=== PATIENT | male | born 1960 | race Caucasian/White ===

== ENCOUNTER 2021-09-04 05:16 | Day surgery (SDC) | payer OTHER ==
[~2021-09-04] VITALS: Ht 185.4 cm; Wt 109.0 kg
[~2021-09-04 05:16] MED LIST: SODIUM CHLORIDE 0.9% 1,000 ML IV ONE
[2021-09-04] MEDS ORDERED: LIDOCAINE 4% 50 ML SOLUTION TP ONE (05:17)
[2021-09-04] MEDS ORDERED: BENZOCAINE 20% 50 MCG/SPRAY 57 GM TP ONE (05:17)
[2021-09-04] MEDS ORDERED: ALBUTEROL SULFATE 2.5 MG/0.5 ML NEB SOLUTION NEB ONE (05:17)
[2021-09-04] MEDS ORDERED: LIDOCAINE 2% 5 ML JELLY TP ONE (05:17)
[2021-09-04] MEDS ORDERED: SODIUM CHLORIDE 0.9% 1,000 ML ONE (06:34)
[2021-09-04 07:08] LABS: COVID AG,FIA SOURCE NASOPHARYNGEAL
[2021-09-04] MEDS ORDERED: FentaNYL CITRATE PF 100 MCG/2 ML VIAL ONE (07:46)
[2021-09-04] MEDS ORDERED: MIDAZOLAM HCL 5 MG/ML VIAL ONE (07:47)
[2021-09-04 07:51] LABS: GLUCOMETER DEV NAME(LOC) SDS.; GLUCOSE,POINT OF CARE 90 MG/DL (70-110)
[2021-09-04] MEDS ORDERED: SODIUM CHLORIDE 0.9% 10 ML ONE (07:51)
[2021-09-04] MEDS ORDERED: GABA-1181 PO (07:54)
[2021-09-04] MEDS ORDERED: BACL10TA PO (07:55)
[2021-09-04] MEDS ORDERED: PRED1 PO (07:56)
[2021-09-04] MEDS ORDERED: RIVA20TA PO (07:58)
[2021-09-04] MEDS ORDERED: DIGO125T84 PO (07:59)
[2021-09-04] MEDS ORDERED: SIMV-261 PO (08:00)
[2021-09-04] MEDS ORDERED: METO50 PO (08:00)
[2021-09-04] MEDS ORDERED: ALLO-45 PO (08:02)
[2021-09-04] MEDS ORDERED: FURO80 PO (08:04)
[2021-09-04] MEDS ORDERED: POTA8TAB71 PO (08:05)
[2021-09-04] MEDS ORDERED: TAMS-13 PO (08:06)
[2021-09-04] MEDS ORDERED: LEVO100 PO (08:06)
[2021-09-04] MEDS ORDERED: MELO-107 PO (08:07)
[2021-09-04] MEDS ORDERED: MethylPREDNISolone SOD SUCC 125 MG/2 ML VIAL ONE (08:30)
[2021-09-04] MEDS ORDERED: MethylPREDNISolone SOD SUCC 125 MG/2 ML VIAL IVP ONE (09:15)
[2021-09-04] MEDS ORDERED: OXYGEN THERAPY IH SCH (20:00)
== END 2021-09-04 11:10 | disposition home or self-care (01) ==
LOC: SURGERY 05:16
PROVIDERS: ATTEND Internal Medicine Critical Care Medicine
DX: J38.4 Edema of larynx (principal); B37.0 Candidal stomatitis; I10 Essential (primary) hypertension; E11.9 Type 2 diabetes mellitus without complications; Z79.899 Other long term (current) drug therapy; Z98.890 Other specified postprocedural states
CPT/HCPCS: 31623; 31624; 71045; 82962; 87015; 87070; 87101; 87206; 87220; 87426; 88112; 88184; 88185; 88305; 88312; 93005; C9803; J2250; J2930; J3010; J7030; J7613; Z7610